=== PATIENT | male | born 1980 | race Caucasian/White ===

== ENCOUNTER 2020-09-25 21:00 | Emergency (ER) | payer OTHER ==
[2020-09-25] MEDS ORDERED: CLARITIN10 MG PO (22:52)
[2020-09-25] MEDS ORDERED: VIBRAMYCIN 100100 MG PO (22:52)
[2020-09-25] MEDS ORDERED: PREDNISONE 20 M20 MG PO (22:52)
== END 2020-09-25 23:47 | disposition home or self-care (01) ==
LOC: ER1 21:00
DX: S20.361A Insect bite (nonvenomous) of right front wall of thorax, initial encounter (principal); L03.313 Cellulitis of chest wall; F17.290 Nicotine dependence, other tobacco product, uncomplicated; Z23 Encounter for immunization; W57.XXXA Bitten or stung by nonvenomous insect and other nonvenomous arthropods, initial encounter
CPT/HCPCS: 90471; 90715; 99283

== ENCOUNTER 2021-09-24 12:12 | Emergency (ER) | payer OTHER ==
[~2021-09-24 12:12] MED LIST: CLARITIN10 MG PO; PREDNISONE 20 M20 MG PO; VIBRAMYCIN 100100 MG PO
[2021-09-24 12:48] LABS: HEMOGLOBIN 16.8 gm/dl (14.0-17.5); RED BLOOD COUNT 4.95 M/UL (4.20-5.50); WHITE BLOOD COUNT 10.7 K/UL (4.5-11.0)
[2021-09-24 13:20] LABS: BUN/CREATININE RATIO 15 (0-10)
== END 2021-09-24 19:10 | disposition left against medical advice (07) ==
LOC: ER1 12:12
DX: R07.9 Chest pain, unspecified (principal); F17.210 Nicotine dependence, cigarettes, uncomplicated
CPT/HCPCS: 71045; 80053; 82550; 82553; 84484; 85025; 93005; 99281